=== PATIENT | female | born 1960 | race Caucasian/White ===

== ENCOUNTER → 2017-07-02 13:11 | Outpatient (CLI) | payer OTHER, SELFPAY ==
--- NOTE | 2017-07-02 | DI.CT.S_ITS ---
PROCEDURE: CT HEAD/BRAIN WO/W CON INDICATIONS: INTRACRANIAL THROMBUS TECHNIQUE: 4.5 mm thick angled axial sections acquired from the foramen magnum to the vertex before and after the administration of intravenous contrast, with coronal and sagittal reformats. For radiation dose reduction, the following was used: automated exposure control, adjustment of mA and/or kV according to patient size. COMPARISON: [facility], MR, BRAIN W&WO CONTRAST, 02/26/2017, 16:39. FINDINGS: Image quality: Excellent. CSF Spaces: Basal cisterns are patent. No extra-axial fluid collections. Ventricles are normal in size and shape. Brain: There are partially occlusive intraluminal filling defects seen within the right transverse sinus, superior sagittal sinus (with image 104 series 10), confluence of sinuses, right sigmoid sinus, likely representing previously described dural venous sinus thrombosis. Limited comparison to prior study from 02/26/17 given differences in imaging modality however no definite interval change. No midline shift. No intracranial bleeds or masses. No abnormal intracranial enhancement. Moses-white interface appears normal. Skull and face: Calvarium and visualized facial bones appear intact, without suspicious lesions. Sinuses: Visualized sinuses and mastoids are clear. IMPRESSION: No definite interval change in previously described predominantly right-sided dural venous sinus thrombosis as above. Dictated by: Ben Burch M.D. on 07/02/2017 at 16:35 Approved by: Ben Burch M.D. on 07/02/2017 at 16:43
== END ==
PROVIDERS: Family Provider Family Medicine; PCP Family Medicine; Visit Provider Family Medicine
DX: I66.9 Occlusion and stenosis of unspecified cerebral artery (principal)
CPT/HCPCS: 70470; Q9967

== ENCOUNTER → 2018-12-07 14:30 | Outpatient (CLI) | payer OTHER, MEDICAID, SELFPAY ==
[2018-12-07 15:12] LABS: Add Manual Diff / Slide Review NO; Basophils Absolute Auto 100 /uL (0-100); Basophils Percent Auto 1.1 % (0-2); Eosinophils Absolute Auto 200 /uL (0-450); Eosinophils Percent Auto 2.9 % (2-4); Hematocrit 44.2 % (36-46); Hemoglobin 14.8 g/dL (12.0-16.0); Lymphocytes Absolute Auto 1500 /uL (1100-4500); Lymphocytes Percent Auto 27.2 % (25-40); Mean Corpuscular HGB Conc 33.5 % (30-36); Mean Corpuscular Hemoglobin 30.2 PG (26-34); Mean Corpuscular Volume 90.2 fL (80-100); Monocytes Absolute Auto 700 /uL (0-900); Monocytes Percent Auto 12.2 % (3-14); Neutrophils Absolute Auto 3200 /uL (1500-7000); Neutrophils Percent Auto 56.6 % (50-75); Platelet Count 321 X10^3/uL (150-400); Red Cell Distribution Width 14.1 % (11.6-14.8); White Blood Cell Count 5.6 X10^3/uL (4.5-11.0)
[2018-12-07 15:46] LABS: Alanine Aminotransferase 41 IU/L (9-52); Albumin 4.5 g/dL (3.5-5.0); Albumin Globulin Ratio 1.5 (1.0-2.8); Alkaline Phosphatase 109 U/L (38-126); Aspartate Aminotransferase 35 IU/L (14-36); BUN Creatinine Ratio 21.4 (6-22); Bilirubin Total 0.4 mg/dL (0.2-1.3); Blood Urea Nitrogen 15 mg/dL (7-17); Calcium 9.7 mg/dL (8.4-10.2); Carbon Dioxide 27 mmol/L (22-32); Chloride 106 mmol/L (98-107); Estimated Glomerular Filt Rate > 60.0 mL/min (>60); Globulin 3.1 g/dL (1.7-4.1); Glucose 93 mg/dL (70-100); HEMOLYSIS < 15 (0-50); Potassium 4.8 mmol/L (3.4-5.1); Sodium 141 mmol/L (137-145); Total Protein 7.6 g/dL (6.3-8.2)
[2018-12-07 15:50] LABS: INR 1.5 (0.9-1.3); Prothrombin Time 17.4 SECONDS (10.1-12.7)
[2018-12-07 16:00] LABS: Vitamin D 25 Hydroxy (D3) 30.3 ng/mL (30.0-100.0)
[2018-12-07 16:06] LABS: Appearance Urine UA CLEAR; Bilirubin Urine UA NEGATIVE (NEGATIVE); Color Urine UA YELLOW; Glucose Urine UA NEGATIVE (Negative); Ketones Urine UA NEGATIVE (NEGATIVE); Leukocyte Esterase Urine UA NEGATIVE (NEGATIVE); Nitrite Urine UA NEGATIVE (Negative); Occult Blood Urine UA NEGATIVE (Negative); Protein Urine UA NEGATIVE (Negative); Urobilinogen Urine UA 0.2 E.U./dL (0.2)
[2018-12-07 16:08] LABS: pH Urine UA 5.5 (4.5-8.0)
== END ==
PROVIDERS: PCP Family Medicine; Visit Provider Family Medicine
DX: Z01.812 Encounter for preprocedural laboratory examination (principal); Z01.818 Encounter for other preprocedural examination
CPT/HCPCS: 36415; 80053; 81003; 82306; 85025; 85610

== ENCOUNTER → 2018-12-08 13:46 | Outpatient (CLI) | payer OTHER, MEDICAID, SELFPAY | PROVIDERS: PCP Family Medicine; Visit Provider Family Medicine | DX: Z01.818 Encounter for other preprocedural examination (principal) | CPT/HCPCS: 87797 ==

== ENCOUNTER → 2019-12-19 12:13 | Outpatient (CLI) | payer OTHER, MEDICAID, SELFPAY ==
[2019-12-19 12:42] LABS: Add Manual Diff / Slide Review NO; Basophils Absolute Auto 200 /uL (0-100); Eosinophils Absolute Auto 200 /uL (0-450); Eosinophils Percent Auto 2.8 % (2-4); Hematocrit 43.3 % (36-46); Hemoglobin 14.5 g/dL (12.0-16.0); Lymphocytes Absolute Auto 1500 /uL (1100-4500); Lymphocytes Percent Auto 26.8 % (25-40); Mean Corpuscular HGB Conc 33.4 % (30-36); Mean Corpuscular Hemoglobin 28.6 PG (26-34); Mean Corpuscular Volume 85.7 fL (80-100); Monocytes Absolute Auto 700 /uL (0-900); Monocytes Percent Auto 12.6 % (3-14); Neutrophils Absolute Auto 3100 /uL (1500-7000); Neutrophils Percent Auto 54.8 % (50-75); Platelet Count 302 X10^3/uL (150-400); Red Blood Cell Count 5.05 X10^6/uL (4.0-5.2); Red Cell Distribution Width 14.8 % (11.6-14.8); White Blood Cell Count 5.7 X10^3/uL (4.5-11.0)
[2019-12-19 13:17] LABS: Alanine Aminotransferase 28 IU/L (<35); Albumin 4.4 g/dL (3.5-5.0); Albumin Globulin Ratio 1.5 (1.0-2.8); Alkaline Phosphatase 126 U/L (38-126); Aspartate Aminotransferase 29 IU/L (14-36); BUN Creatinine Ratio 23.9 (6-22); Bilirubin Total 0.4 mg/dL (0.2-1.3); Blood Urea Nitrogen 17 mg/dL (7-17); Calcium 9.4 mg/dL (8.4-10.2); Carbon Dioxide 28 mmol/L (22-32); Chloride 106 mmol/L (98-107); Cholesterol 288 mg/dL (140-199); Estimated Glomerular Filt Rate > 60.0 mL/min (>60); Glucose 87 mg/dL (80-110); HDL Cholesterol 75 mg/dL (40-60); HEMOLYSIS < 15 (0-50); LDL Cholesterol Calculated 158 mg/dL (<100); Potassium 4.8 mmol/L (3.4-5.1); Sodium 139 mmol/L (137-145); Total Protein 7.4 g/dL (6.3-8.2); Triglycerides 277 mg/dL (35-150)
[2019-12-19 13:40] LABS: INR 1.1 (0.9-1.3); Prothrombin Time 12.4 SECONDS (10.1-12.7)
[2019-12-19 13:45] LABS: TSH w/ Reflex to FT4 6.79 uIU/mL (0.47-4.68)
[2019-12-19 14:12] LABS: Free T4, Direct Thyroxine 0.88 ng/dL (0.78-2.19)
== END ==
PROVIDERS: PCP Family Medicine; Referring Provider Family Medicine; Visit Provider Family Medicine
DX: D68.52 Prothrombin gene mutation (principal); R51.9 Headache, unspecified
CPT/HCPCS: 36415; 80053; 80061; 84439; 84443; 85025; 85610

== ENCOUNTER → 2019-12-26 13:30 | Outpatient (CLI) | payer OTHER, MEDICAID, SELFPAY ==
[2019-12-27 22:26] LABS: COVID19 Sendout Not Detected (Not Detect)
== END ==
PROVIDERS: PCP Family Medicine; Visit Provider Physician Assistant
DX: Z11.59 Encounter for screening for other viral diseases (principal)
CPT/HCPCS: 87635

== ENCOUNTER → 2019-12-29 12:30 | Outpatient (CLI) | payer OTHER, MEDICAID, SELFPAY ==
--- NOTE | 2020-01-06 16:29 | PM.PFT.1 ---
Pulmonary Function Test Referral & Results Date Patient Seen: 12/29/19 Requesting provider: Nakul Byers Results: The spirometry demonstrates an FVC of 2.46 L which is 62% of predicted. The FEV1 was measured at 2.07 L which is 67% of predicted. The FEV1/FVC ratio was 84 which is 107% of predicted. Following the administration of bronchodilator there was at 35% improvement in FEF 25-75%. Lung volumes show an SVC of 2.50 L which is 70% of predicted. The diffusing capacity was measured at 22.83 which is 73% of predicted. No hemoglobin value was provided, so no correction for potential anemia could be made, if appropriate. The maximum voluntary ventilation was reduced Interpretation: This study demonstrates both evidence of obstructive and restrictive lung disease however these are balanced with reduction in diffusing capacity suggesting overall interstitial lung disease type process causing more significant restriction in disease at the capillary alveolar level Clinical correlation suggested
== END ==
PROVIDERS: PCP Family Medicine; Referring Provider Family Medicine; Visit Provider Family Medicine
DX: R06.02 Shortness of breath (principal); Z87.891 Personal history of nicotine dependence; J98.8 Other specified respiratory disorders
CPT/HCPCS: 94060; 94726; 94729

== ENCOUNTER → 2020-01-03 15:50 | Outpatient (CLI) | payer OTHER, MEDICAID, SELFPAY ==
--- NOTE | 2020-01-03 | DI.MG.S_ITS ---
BILATERAL DIGITAL SCREENING MAMMOGRAM 3D/2D WITH CAD: 01/03/2020 CLINICAL: Routine screening. Comparison is made to exams dated: 02/09/2017 mammogram - [facility] and 08/18/2008 mammogram - [facility]. There are scattered fibroglandular elements in both breasts. Current study was also evaluated with a Computer Aided Detection (CAD) system. No significant masses, calcifications, or other findings are seen in either breast. There has been no significant interval change. IMPRESSION: NEGATIVE There is no mammographic evidence of malignancy. A 1 year screening mammogram is recommended. This exam was interpreted at Station ID: [id number]. NOTE: For mammograms, a report in lay terms will be sent to the patient. Approximately 15% of breast malignancies will not be visualized mammographically. In the management of a palpable breast mass, a negative mammogram must not discourage biopsy of a clinically suspicious lesion. Electronically Signed By: Vladimir call/eugenio:01/04/2020 08:06:36 letter sent: Normal Exam ACR BI-RADS Category 1: Negative [id number]
--- NOTE | 2020-01-03 15:53 | DI.ECHO.S_ITS ---
[facility] +---------+ : : [id number] [place] : : : : [id number] : : : : Phone: [phone]+ Echocardiogram Report + + :Name: STEPHANIE CONTRERAS Study Date: 01/03/2020 Height: 69 in : :[facility] Weight: 200 lb : : Gender: Female BSA: 2.1 m2 : :: 1960 Age: 59 yrs BP: 130/93 mmHg: :Reason For Study: IRREGULAR HEART RATE : :Ordering Physician: CAMERON, : :JACQUES Performed By: Aysha Rene : :Referring: JACQUES BARNES : + + Interpretation Summary Normal sinus rhythm. There was a short run of atrial tachycardia (5 beats); otherwise no ectopy. Normal LV size, wall thickness, wall motion and LV systolic function. EF is 65-70%. Normal chamber sizes. No significant valvular abnormalities. No prior study available for comparison. Procedure: A two-dimensional transthoracic echocardiogram with color flow and Doppler was performed. The study quality was technically difficult. There is no prior echocardiogram noted for this patient. Left Ventricle: The left ventricle is normal in size and wall thickness. The ejection fraction is estimated to be 65-70%. Diastolic parameters suggest probable normal left ventricular diastolic function and normal filling pressures. Right Ventricle: The right ventricle is not well visualized. The right ventricle is grossly normal size. The right ventricular systolic function is normal. Atria: Both atria are normal in size. There is no Doppler evidence for an interatrial shunt. Mitral Valve: The mitral valve is normal in structure and function. There is trace mitral regurgitation. Aortic Valve: The aortic valve is grossly normal. The aortic valve opens well. There is no aortic valve stenosis. No aortic regurgitation is present. Tricuspid Valve: The tricuspid valve is not well visualized, but is grossly normal. There is trace tricuspid regurgitation. Pulmonary artery pressures cannot be estimated because of the lack of a measurable TR jet velocity but the IVC suggests a CVP of around 3 mmHg. Pulmonic Valve: The pulmonic valve is not well visualized. There is no pulmonic valvular regurgitation. Great Vessels: The aortic root is normal size. The ascending aorta could not be visualized. The IVC is of normal diameter and collapses greater than 50% with a sniff. This suggests a low right atrial pressure of 3 mm Hg. Pericardium/ Pleura There is no pleural effusion. MMode/2D Measurements & Calculations LVIDd: 3.8 cm LVOT diam: 2.0 cm LVIDs: 2.8 cm Ao root diam: 3.1 cm FS: 25.2 % Ao Arch Diam (Prox Trans): 2.8 cm IVSd: 0.97 cm LVPWd: 0.94 cm LV landa. diameter/BSA (cm/m^2): 1.8 LV sys. diameter/BSA (cm/m^2): 1.4 LA A2 area: 22.8 cm2 RA long axis: 4.2 cm LA A4 area: 16.5 cm2 RA area: 13.3 cm2 LA length (vol): 4.9 cm RA vol: 36.0 ml LA vol: 64.4 ml RA : 17.5 ml/m2 LA vol index: 31.2 ml/m2 IVC diam: 1.5 cm TAPSE: 2.4 cm Doppler Measurements & Calculations Ao V2 max: 145.3 cm/sec LVOT Max Dar: 127.6 cm/sec Ao V2 mean: 101.6 cm/sec LV V1 max P.5 mmHg Ao max P.4 mmHg LV V1 VTI: 21.2 cm Ao mean P.6 mmHg MARIA DEL ROSARIO(I,D): 2.6 cm2 Ao V2 VTI: 24.8 cm MARIA DEL ROSARIO(V,D): 2.6 cm2 sev ratio: 0.86 MARIA DEL ROSARIO indexed to BSA (cm^2/m^2): 1.2 MV E max dar: 56.4 cm/sec PA V2 max: 77.4 cm/sec MV A max dar: 80.8 cm/sec PA V2 mean: 46.5 cm/sec MV E/A: 0.70 PA mean P.0 mmHg Med Peak E' Dar: 6.3 cm/sec PA Accel Time: 0.13 sec E/E' med: 9.0 Lat Peak E' Dar: 8.0 cm/sec E/E' lat: 7.0 E/e' average: 8.0 MV dec time: 0.24 sec SV(LVOT): 63.9 ml Electronically signed by: Jennifer Rios M.D. on Reading Physician:01/04/2020 05:56 AM
== END ==
PROVIDERS: PCP Family Medicine; Referring Provider Family Medicine; Visit Provider Family Medicine
DX: Z12.31 Encounter for screening mammogram for malignant neoplasm of breast (principal); I49.9 Cardiac arrhythmia, unspecified; R51.9 Headache, unspecified; D68.52 Prothrombin gene mutation
CPT/HCPCS: 77063; 77067; 93306

== ENCOUNTER → 2020-04-19 14:14 | Outpatient (CLI) | payer OTHER, MEDICAID, SELFPAY ==
[2020-04-19 14:44] LABS: INR 3.3 (0.9-1.3); Prothrombin Time 37.5 SECONDS (10.1-12.7)
[2020-04-23 14:01] LABS: QuantiFERON Nil Value 0.19 IU/mL (.); QuantiFERON TB Gold Plus Negative (Negative); QuantiFERON TB1 Ag Value 0.21 IU/mL (.)
== END ==
PROVIDERS: PCP Family Medicine; Referring Provider Family Medicine; Visit Provider Family Medicine
DX: D68.52 Prothrombin gene mutation (principal); D68.62 Lupus anticoagulant syndrome; Z02.1 Encounter for pre-employment examination; Z20.822 Contact with and (suspected) exposure to COVID-19
CPT/HCPCS: 36415; 85610; 86480

== ENCOUNTER → 2020-12-18 13:29 | Outpatient (CLI) | payer OTHER, MEDICAID, SELFPAY ==
--- NOTE | 2020-12-18 13:33 | DI.US.S_ITS ---
PROCEDURE: US PERIPH VENOUS LOW EXTREM RT INDICATIONS: R calf swelling, area of hardness/erythema to R lateral calf TECHNIQUE: Real-time imaging, as well as color and pulse Doppler interrogation, were performed of the lower extremity deep veins from the inguinal ligament to the popliteal fossa. COMPARISON: None. FINDINGS: The common femoral, femoral and popliteal veins are normally compressible, and free of intraluminal thrombus. Color and pulse Doppler demonstrate normal phasic intraluminal flow. There is normal augmentation response to distal compression maneuver. At the area of clinical concern within the calf, there are 2 hypoechoic nonvascular areas measuring 12 x 8 x 6 mm and 9 x 10 x 6 mm, respectively. IMPRESSION: Negative for deep venous thrombosis. Likely small hematomas are seen at the sites of clinical concern. If these do not resolve clinically in 8-12 weeks, please consider a follow-up lower extremity ultrasound for further evaluation. Dictated by: Juanito Newberry M.D. on 12/18/2020 at 13:53 Approved by: Juanito Newberry M.D. on 12/18/2020 at 13:54
== END ==
PROVIDERS: PCP Family Medicine; Referring Provider Physician Assistant; Visit Provider Physician Assistant
DX: M79.89 Other specified soft tissue disorders (principal); L53.9 Erythematous condition, unspecified
CPT/HCPCS: 93971

== ENCOUNTER → 2021-04-26 12:15 | Outpatient (CLI) | payer OTHER, MEDICAID, SELFPAY ==
--- NOTE | 2021-04-26 12:20 | DI.RAD.S_ITS ---
PROCEDURE: XR HIP W PEL IF DONE RT 2V INDICATIONS: rt hip pain TECHNIQUE: AP pelvis with lateral view(s) of the right hip(s). COMPARISON: None. FINDINGS: Bones: No fractures or dislocations. Pelvic ring appears intact. No suspicious bony lesions. Mild symmetric hip and sacroiliac joint degeneration bilaterally. Soft tissues: The visualized bowel gas pattern is normal. No suspicious soft tissue calcifications. IMPRESSION: 1. No acute osseous abnormalities. 2. Degenerative joint disease. Dictated by: Remington Daley M.D. on 04/26/2021 at 17:50 Approved by: Remington Daley M.D. on 04/26/2021 at 17:51
--- NOTE | 2021-04-26 12:20 | DI.RAD.S_ITS ---
PROCEDURE: XR CHEST 2V INDICATIONS: short of breath TECHNIQUE: 2 views of the chest were acquired. COMPARISON: [facility], , CHEST 2 VIEW, 05/13/2011, 12:33. FINDINGS: Surgical changes and devices: None. Lungs and pleura: Lungs are clear. No pleural effusions or pneumothorax. Mediastinum: Mediastinal contours are normal. Heart size is normal. Bones and chest wall: No suspicious bony abnormalities. Soft tissues appear unremarkable. IMPRESSION: No acute process. Dictated by: Vidal Duvall M.D. on 04/26/2021 at 15:32 Approved by: Vidal Duvall M.D. on 04/26/2021 at 16:56
--- NOTE | 2021-04-26 12:20 | DI.RAD.S_ITS ---
PROCEDURE: XR LUMBAR SPINE 2-3V INDICATIONS: low back pain TECHNIQUE: 3 views of the lumbar spine were acquired. COMPARISON: [facility], CR, XR CHEST 2V, 04/26/2021, 12:14. FINDINGS: Bones: 5 [id number] vertebrae are present. There is normal bony alignment. No vertebral body compression fractures. No suspicious bony lesions. There is degenerative disc disease severe at L5-S1 and mild at L4-L5. There is facet arthropathy at L5-S1. Soft tissues: Overlying bowel gas pattern is normal. No suspicious soft tissue calcifications. IMPRESSION: Severe degenerative disc disease and facet arthropathy at L5-S1. Dictated by: Remington Daley M.D. on 04/26/2021 at 17:51 Approved by: Remington Daley M.D. on 04/26/2021 at 17:52
== END ==
PROVIDERS: PCP Family Medicine; Referring Provider Family Medicine; Visit Provider Family Medicine
DX: U07.1 COVID-19 (principal); I49.3 Ventricular premature depolarization; M16.0 Bilateral primary osteoarthritis of hip; M47.818 Spondylosis without myelopathy or radiculopathy, sacral and sacrococcygeal region; M51.37 Other intervertebral disc degeneration, lumbosacral region; M47.817 Spondylosis without myelopathy or radiculopathy, lumbosacral region; M51.36 Other intervertebral disc degeneration, lumbar region; M25.551 Pain in right hip; M54.50 Low back pain, unspecified
CPT/HCPCS: 36415; 71046; 72100; 73502; 84443

== ENCOUNTER → 2021-10-09 13:41 | Outpatient (CLI) | payer OTHER, SELFPAY | PROVIDERS: PCP Family Medicine; Referring Provider Family Medicine; Visit Provider Family Medicine | DX: R00.2 Palpitations (principal) | CPT/HCPCS: 93246 ==

== ENCOUNTER → 2022-07-24 19:10 | Outpatient (CLI) | payer OTHER, SELFPAY ==
--- NOTE | 2022-07-24 | DI.MRI.S_ITS ---
PROCEDURE: MR THORACIC SPINE WO CON INDICATIONS: sprain of ligaments of thoracic spine TECHNIQUE: Noncontrast sagittal T1 spine echo and T2 fast spin echo, sagittal STIR, and T2 fast spin echo through the thoracic spine. COMPARISON: None. FINDINGS: Image quality: This examination is limited by involuntary motion artifact. Alignment and Curvature: No pneumothorax or pleural effusions are seen. The central airways are patent. No focal AP alignment abnormality is seen. Bone Marrow: Marrow is of normal overall signal. No acute vertebral body compression fractures. Minimal loss of height can be seen anteriorly at T7 and T8, with 10% loss of height anteriorly at each of these levels. No acute features are seen. No abnormal STIR signal. Spinal Cord: Visualized spinal cord is normal in size and signal. Paraspinous Soft Tissues: No paravertebral masses. In this patient with this given history, scrutiny is given to paraspinous ligaments. No kia abnormal edema can be seen to suggest recent ligamentous injury. Miscellaneous: Age-appropriate bony degenerative changes are seen. No significant neural foraminal or central canal narrowing can be seen. IMPRESSION: No findings of recent ligamentous injury can be seen. Remote T7 and T8 anterior wedge deformities, with associated accentuated thoracic kyphosis. Dictated by: Juanito Newberry M.D. on 07/25/2022 at 10:20 Approved by: Juanito Newberry M.D. on 07/25/2022 at 10:22
== END ==
PROVIDERS: PCP Family Medicine; Referring Provider Chiropractor Rehabilitation; Visit Provider Chiropractor Rehabilitation
DX: S23.3XXA Sprain of ligaments of thoracic spine, initial encounter (principal)
CPT/HCPCS: 72146

== ENCOUNTER → 2023-09-16 19:35 | Outpatient (CLI) | payer OTHER, SELFPAY ==
--- NOTE | 2023-09-16 19:37 | DI.MRI.S_ITS ---
PROCEDURE: MR KNEE LT WO CON INDICATIONS: PAIN IN LEFT KNEE TECHNIQUE: Noncontrast sagittal PD fast spin echo and T2 fast spin echo with fat saturation, sagittal 3-D FLASH with fat saturation; coronal T1 spin echo and PD fast spin echo with fat saturation, and axial PD fast spin echo with fat saturation through the knee. COMPARISON: None. FINDINGS: Image quality: Excellent. Menisci: Focal oblique tear involving posterior horn of medial meniscus is seen extending to inferior articulating surface. There is also oblique tear involving posterior horn medial meniscus extending to superior articulating surface. Radial tear involving body and posterior horn of lateral meniscus is also seen extending to both superior and inferior articulating surfaces. The meniscal root ligaments appear intact. Cruciate ligaments: The anterior cruciate ligament is thickened with intrasubstance T2 hyperintense signal particularly near its femoral insertion. The posterior cruciate ligament is intact Medial structures: The medial collateral ligament appears mildly thickened. Visualized portions of the pes anserinus tendons appear normal. No abnormal bursal fluid. Lateral structures: The lateral collateral ligament is thickened at its femoral insertion. The long and short heads of the biceps femoris tendon appear intact. The popliteus tendon appears normal. Iliotibial band appears normal. Anterior structures: The quadriceps and patellar tendons appear intact. Patellar alignment is normal. No femoral trochlear dysplasia or ventral trochlear prominence. No edema in the infrapatellar fat pad. Bones and cartilage: No bone marrow contusions or fractures. Oyol-ga-kfshhcwd tricompartmental osteoarthritis and chondromalacia is seen more notably in medial and lateral femoral tibial compartments. Joint space: There is small to moderate amount of joint effusion. There is a popliteal cyst measures 3.2 x 2.5 x 5 cm in size. Normal appearing synovial plicae are incidentally noted. IMPRESSION: 1. 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 No fracture or dislocation. Small to moderate joint effusion and a popliteal cyst as above, no loose bodies. 2. Oblique tears involving posterior horn of medial meniscus extending to both superior and inferior articulating surfaces. Radial tear involving body and posterior horn of lateral meniscus extending to both superior and inferior articulating surfaces. 3. Degenerative changes involving anterior cruciate ligament. No cruciate ligament rupture. 4. Low-grade MCL sprain. Low-grade sprain/partial-thickness tear involving proximal LCL. Dictated by: Parminder Moyer M.D. on 09/17/2023 at 9:41 Approved by: Parminder Moyer M.D. on 09/17/2023 at 9:46
== END ==
PROVIDERS: PCP Family Medicine; Referring Provider Orthopaedic Surgery; Visit Provider Orthopaedic Surgery
DX: S83.242A Other tear of medial meniscus, current injury, left knee, initial encounter (principal); S83.282A Other tear of lateral meniscus, current injury, left knee, initial encounter; S83.412A Sprain of medial collateral ligament of left knee, initial encounter; S83.422A Sprain of lateral collateral ligament of left knee, initial encounter; M17.12 Unilateral primary osteoarthritis, left knee; M94.262 Chondromalacia, left knee; M25.462 Effusion, left knee; M71.22 Synovial cyst of popliteal space [Baker], left knee; M25.562 Pain in left knee
CPT/HCPCS: 73721

== ENCOUNTER → 2024-11-27 14:52 | Outpatient (CLI) | payer OTHER, SELFPAY ==
--- NOTE | 2024-11-27 14:54 | DI.CT.S_ITS ---
PROCEDURE: CT INTERNAL AUDITORY CANALS BI INDICATIONS: hearing loss COMPARISON: None. TECHNIQUE: Noncontrast 0.6 mm thick axial sections acquired through each temporal bone separately. Coronal images are reformatted. FINDINGS: Image quality: Excellent. RIGHT: External auditory canal: Possible device within the external auditory canal, not well visualized and appears external to the tympanic membrane. Middle ear: The ossicles appear normal. The tympanic membrane is thickened. There is small opacification of the middle ear cavity extending towards the eustachian tube. Inner ear: Inner ear is normally formed and appears unremarkable. Facial nerve appears normal throughout is course. Mastoids: Mastoid air cells are clear. LEFT: External auditory canal: Canal has a normal appearance. Middle ear: The middle ear structures, including the ossicles and tympanic membrane, appear normal. No abnormal fluid or soft tissue density. Inner ear: Inner ear is normally formed and appears unremarkable. Facial nerve appears normal throughout its course. Mastoids: Mastoid air cells are clear. MISCELLANEOUS: Visualized surrounding bones appear unremarkable. Visualized intracranial structures, including the cerebellopontine angle cisterns, appear normal. IMPRESSION: 1. Small opacification of the right middle ear cavity extending towards the station tube. 2. Thickening of the tympanic membrane on the right. 3. Possible device within the right external auditory canal which is not well visualized and appears to extend near the tympanic membrane but does not abut or penetrate the tympanic membrane. Recommend correlation with surgical history and direct visualization. Dictated by: Fab Ventura M.D. on 11/28/2024 at 16:34 Approved by: Fab Ventura M.D. on 11/28/2024 at 16:42
== END ==
LOC: CT 14:53
PROVIDERS: PCP Family Medicine; Referring Provider Family Medicine; Visit Provider Student in an Organized Health Care Education/Training Program
DX: H90.A31 Mixed conductive and sensorineural hearing loss, unilateral, right ear with restricted hearing on the contralateral side (principal)
CPT/HCPCS: 70480

== ENCOUNTER → 2025-02-10 13:12 | Outpatient (CLI) | payer OTHER, SELFPAY ==
[2025-02-10 13:58] LABS: INR 2.1 (0.9-1.3); Prothrombin Time 23.5 SECONDS (9.4-12.5)
[2025-02-10 13:59] LABS: Hemoglobin A1C% w Est Avg Glu 5.2 % (4.0-6.0)
[2025-02-10 14:07] LABS: Cholesterol 279 mg/dL (140-199); HDL Cholesterol 78 mg/dL (40-60); Triglycerides 179 mg/dL (35-150)
[2025-02-10 14:38] LABS: TSH w/ Reflex to FT4 3.72 uIU/mL (0.47-4.68)
== END ==
PROVIDERS: PCP Family Medicine; Referring Provider Family Medicine; Visit Provider Physician Assistant
DX: D68.52 Prothrombin gene mutation (principal); R73.03 Prediabetes; E66.09 Other obesity due to excess calories; E03.9 Hypothyroidism, unspecified; E78.2 Mixed hyperlipidemia; Z83.3 Family history of diabetes mellitus; Z68.31 Body mass index [BMI] 31.0-31.9, adult; Z79.01 Long term (current) use of anticoagulants
CPT/HCPCS: 36415; 80061; 83036; 84443; 85610